=== PATIENT | female | born 1975 | race Hispanic/Latino ===

== ENCOUNTER 2023-01-17 15:01 | Inpatient (IN) | payer OTHER ==
--- OUTSIDE RECORDS SUMMARY | 2023-01-17 15:05 | XMS REPORT | Continuity of Care Document ---
:1975 Author Organization [facility] t Address [address] [place] [address] [address] [place] [address] Care Team Providers Name Role Phone GABRIELE ESCALANTE Primary Care Physician Unavailable GABRIELE ESCALANTE Attending Clinician Unavailable Gia_Boris Attending Clinician Unavailable Raghu_Dennis Attending Clinician Unavailable GABRIELE ESCALANTE Admitting Clinician Unavailable Andres Admitting Clinician Unavailable Sana Admitting Clinician Unavailable Payers Payer Name Policy Type Policy Number Effective Date Expiration Date S ource 0257 [id number] 1959 00:00:00 1014 [id number] 2023 00:00:00 [employer] (POS) [id number] 2021 00:00:00 [facility] - [id number] 2020 EV BENEFITS 00:00:00 MANAGEMENT Problems Condition Condition Condition Status Onset Resolution Last Treating Co mments Source Name Details Category Date Date Treatment Clinician Date Diabetes Diabetes Problem Active [facility]ween y mellitus Mellitus 01-15 [facility]: [facility] Vitamin D Vitamin D Problem Active Swe gladis deficiency Deficiency 01-15 Co mmuni 00:00: ty [facility] Serum iron Serum Iron Problem Active S weeny low Low 01-15 Communi 00:00: ty [facility] Abscess of Abscess of Problem Active S weeny skin of Skin of 01-15 Communi abdomen Abdomen 00:00: ty 00 [facility] Allergies, Adverse Reactions, Alerts Allergy Allergy Status Severity Reaction(s) Onset Inactive Treating Comm ents Source Name Type Date Date Clinician No Known DA Active Unknown [facility] 04-30 Medical Allergie 00:00: Center s 00 Social History Smoking Status Start Date Stop Date Source Never Smoker [facility] Medications Ordered Filled Start Stop Current Ordering Indication Dosage Frequency Signature Comments Components Source Medication Medication Date Date Medication? Clinician (SIG) Name Name mupirocin 2 mupirocin 2 No mupirocin [place] % topical % topical 2 % Commu ni ointment ointment topical ty APPLY A APPLY A ointment Hospi ta SMALL SMALL APPLY A l AMOUNT TO AMOUNT TO SMALL Clin ics THE THE AMOUNT TO AFFECTED AFFECTED THE AREA BY AREA BY AFFECTED TOPICAL TOPICAL AREA BY ROUTE 3 ROUTE 3 TOPICAL TIMES PER TIMES PER ROUTE 3 DAY DAY TIMES PER DAY Tylenol Tylenol No Tylenol [place] Arthritis Arthritis Arthritis Communi Pain Pain Pain ty Hospita l Clinics cephalexin cephalexin No 1capsul Q6H cephalexin [place] 500 mg 500 mg e(s) 500 mg Communi capsule capsule capsule ty Take 1 Take 1 Take 1 Hospita capsule capsule capsule l every 6 every 6 every 6 Clinic s hours by hours by hours by oral route oral route oral route for 7 days. for 7 days. for 7 days. cholecalcif cholecalcif No 1capsul Q1W cholecalci [place] timothy timothy e(s) ferol Communi (vitamin (vitamin (vitamin ty D3) 1,250 D3) 1,250 D3) 1,250 Hospita mcg (50,000 mcg (50,000 mcg l unit) unit) (50,000 Clinics capsule capsule unit) Take 1 Take 1 capsule capsule capsule Take 1 every week every week capsule by oral by oral every week route. route. by oral route. ferrous ferrous No 1 Q1D ferrous [place] sulfate 325 sulfate 325 sulfate Communi mg (65 mg mg (65 mg 325 mg (65 ty iron) iron) mg iron) Hospita tablet Take tablet Take tablet l 1 tablet 1 tablet Take 1 Clini cs every day every day tablet by oral by oral every day route. route. by oral route. metformin metformin No 1 Q1D metformin [place] ER 500 mg ER 500 mg ER 500 mg Communi tablet,exte tablet,exte tablet,ext ty nded nded ended Hospita release 24 release 24 release 24 l hr Take 1 hr Take 1 hr Take 1 Clinics tablet tablet tablet every day every day every day by oral by oral by oral route for route for route for 30 days. 30 days. 30 days. mupirocin 2 mupirocin 2 No mupirocin [place] % topical % topical 2 % Commu ni ointment ointment topical ty APPLY A APPLY A ointment Hospi ta SMALL SMALL APPLY A l AMOUNT TO AMOUNT TO SMALL Clin ics THE THE AMOUNT TO AFFECTED AFFECTED THE AREA BY AREA BY AFFECTED TOPICAL TOPICAL AREA BY ROUTE 3 ROUTE 3 TOPICAL TIMES PER TIMES PER ROUTE 3 DAY DAY TIMES PER DAY Tylenol Tylenol No Tylenol [place] Arthritis Arthritis Arthritis Communi Pain Pain Pain ty Hospita l Clinics Vital Signs Vital Name Observation Time Observation Value Comments Source BP Diastolic 2023-01-15 00:00:00 68 mm[Hg] [facility] Height 2023-01-15 00:00:00 59 [in_i] [facility] BMI (Body Mass 2023-01-15 00:00:00 52.4 kg/m2 [facility]) [facility] s BP Systolic 2023-01-15 00:00:00 139 mm[Hg] [facility] s Body Weight 2023-01-15 00:00:00 4150.4 [oz_av] [facility] s BP Diastolic 2023-01-09 00:00:00 85 mm[Hg] [facility] Height 2023-01-09 00:00:00 59 [in_i] [facility] s BMI (Body Mass 2023-01-09 00:00:00 52.4 kg/m2 [facility]) [facility] s BP Systolic 2023-01-09 00:00:00 151 mm[Hg] [facility] s Body Weight 2023-01-09 00:00:00 4147.2 [oz_av] [facility] s Procedures Procedure Date / Time Performed Performing Clinician Sourc e MAMMO, screening, 2023-01-09 00:00:00 [facility] digital, bilateral Hospital Clin ics US, duplex, arterial, 2023-01-09 00:00:00 [facility] lower extremity [facility] Plan of Care Planned Activity Planned Date Details Comments Source Diagnostic Test 2023-01-09 TSH + free T4, serum [facility] Pending 00:00:00 [code = TSH + free T4, [facility] serum] Diagnostic Test 2023-01-09 vitamin D, 25-hydroxy, [facility] Pending 00:00:00 total, serum [code = [facility] vitamin D, 25-hydroxy, total, serum] Diagnostic Test 2023-01-09 CBC w/ auto diff [code [facility] Pending 00:00:00 = CBC w/ auto diff] [facility] Diagnostic Test 2023-01-09 CMP, serum or plasma [facility] Pending 00:00:00 [code = CMP, serum or [facility] plasma] Diagnostic Test 2023-01-09 HbA1c (hemoglobin [facility] Pending 00:00:00 A1c), blood [code = [facility] HbA1c (hemoglobin A1c), blood] Diagnostic Test 2023-01-09 vitamin B12 + folate, [facility] Pending 00:00:00 serum or blood [code = [facility] vitamin B12 + folate, serum or blood] Diagnostic Test 2023-01-09 lipid panel, serum [facility] Pending 00:00:00 [code = lipid panel, [facility] serum] Diagnostic Test 2023-01-09 insulin, serum [code = [facility] Pending 00:00:00 insulin, serum] [facility] nic Diagnostic Test 2023-01-09 iron + TIBC + [place] [facility] unity Pending 00:00:00 ferritin, serum [code [facility] = iron + TIBC + ferritin, serum] Diagnostic Test 2023-01-09 rf (rheumatoid [place] [facility] Pending 00:00:00 factor), serum [code = [facility] rf (rheumatoid factor), serum] Diagnostic Test 2023-01-09 TERESA (antinuclear [place] [facility] Pending 00:00:00 antibodies) screen, [facility] serum [code = TERESA (antinuclear antibodies) screen, serum] Diagnostic Test 2023-01-09 ESR (erythrocyte [place] [facility] Pending 00:00:00 sedimentation rate), [facility] blood [code = ESR (erythrocyte sedimentation rate), blood] Diagnostic Test 2023-01-09 C-reactive protein, [facility] Pending 00:00:00 quantitative [code = [facility] C-reactive protein, quantitative] Future Appointment 2023-04-17 Gabriele Escalante, [address] [place] [address] 00:00:00 [facility] [address]; , [place] [address] Future Appointment 2023-01-29 Gabriele Escalante [address] [place] [address] 00:00:00 [facility] [address]; , [place] [address] Instructions [facility] s Encounters Start End Encounter Admission Attending Care Care Encounter Source Date/Time Date/Time Type Type Clinicians Facility Department ID 2023-01-16 2023-01-16 Outpatient Meg AHUJAAlyssa [facility] RAD [id number] [place] 13:29:00 23:59:00 [facility] 2023-01-15 [facility] [place] [facility] [place] 00:[facility]:00 00:00:00 [facility] komal CAMPOS, MSN, [facility] - ty [facility]: [address], [address], [place] [address] , Ph. 2023-01-09 2023-01-09 Outpatient L_Pena [facility] [id number] [place] 00:00:00 00:00:00 0502 Commun i ty Hospita l [facility] 2023-01-09 2023-01-09 Outpatient L_Pena [facility] [id number] [place] 00:00:00 00:00:00 0508 Commun i ty Hospita l Clinics 2023-01-09 2023-01-09 Outpatient L_Pena [facility] [id number] [place] 00:00:00 00:00:00 0509 Commun i ty Hospita l Clinics 2023-01-09 2023-01-09 [facility] [place] 00:00:00 00:00:00 [facility] CAMPOS, MSN, Hospital - ty [facility]: [facility] [address] [place] [address], CLINIC [address], [place] [address] , Ph. 2023-01-08 2023-01-08 Outpatient PRIV PRIV [id number] [facility] 00:00:00 00:00:00 [id number] Medica l 2023-01-08 2023-01-08 Outpatient L_Pena [facility] [id number] [place] 00:00:00 00:00:00 0501 Commun i ty Hospita l Clinics 2022-12-08 2022-12-08 Outpatient [place]_P VFP VFP [id number] [place] 00:00:00 00:00:00 [id number] Family Practic e Results Test Description Test Time Test Comments Results Result Sour e Comments U/S [facility] 2023-01-16 DOPPLER CHARLIE LOW 16:03:07 [facility] 1975 Sex: F EXAMINATION :U/S [facility] DOPPLER CHARLIE LOW EXTCLINICAL INDICATION:Female, 47 years old with Skin findingTECHNIQUE: Grayscale, color Doppler, and spectral waveform analysis of the bilateral lower extremity is performed.COMPARISON: NoneFINDINGS:Grayscale: No significant atherosclerotic change. Doppler: Right: Biphasic and triphasic waveforms and normal velocities are documented in the common femoral, superficial femoral, popliteal, anterior tibial, posterior tibial, and peroneal arteries. There is no focal, high velocity stenosis or abrupt occlusion.Left: Biphasic and triphasic waveforms and normal velocities are documented in the common femoral, superficial femoral, popliteal, anterior tibial, posterior tibial, and peroneal arteries. The distal aspect of the superficial femoral artery is not visualized. There is no focal, high velocity stenosis or abrupt occlusion.Additional findings: No additional sonographic abnormality.IMPRESSION:N o acute sonographic abnormality, no evidence of hemodynamically significant stenosis.Electronically signed by: Saul Pagan MD 01/16/2023 4:03 PM CDT MAMMO SCREENING 2023-01-16 W/ JI 14:34:28 [facility] 1975 Sex: F Exam: Bilateral digital mammogram with 3-D TomosynthesisLocation: [id number]: Routine screening.Comparison: None, baselineFINDINGS:No dominant masses or clustered microcalcifications are identified. The breast parenchyma demonstrates scattered fibroglandular elements with some benign secretory calcifications without worrisome pleomorphic microcalcifications.R2 computer aided detection was utilized as an aid for interpreting these images.IMPRESSION:1. ACR BI-RADS 2. Benign findings. Recommendation: Routine yearly mammographic follow-up recommended.Electronical ly signed by: Manolo Ivy MD 01/16/2023 2:34 PM CDT
--- NOTE | 2023-01-17 15:26 | EDPHYS ---
Physician Documentation [facility] Name: Rissa Donovan Age: 47 yrs Sex: Female : 1975 Arrival Date: 01/17/2023 Time: 15:01 Bed 18 Private MD: ED Physician Weston Aguilar HPI: 01/17 15:21 This 47 yrs old Female presents to ER via Ambulatory with complaints of ms3 Abscess. 15:21 47-year-old female with past medical history of diabetes presents from Dr. Blanca's ms3 office for panniculitis and abscess. Patient denies pain at this time. Patient denies fevers, chills, nausea, vomiting. 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 - Social history:: Smoking status: Patient denies any tobacco usage or history of. ROS: 15:21 Constitutional: Negative for fever, and chills. Neck: Negative for injury, pain, and ms3 swelling, Cardiovascular: Negative for chest pain, and palpitations. Respiratory: Negative for shortness of breath, cough, wheezing, and pleuritic chest pain, Abdomen/GI: Negative for abdominal pain, nausea, vomiting, diarrhea, and constipation, MS/Extremity: Negative for injury and deformity. 15:21 Skin: Positive for abscess, cellulitis. 15:21 All other systems are negative. Exam: 15:21 Constitutional: This is a well developed, well nourished patient who is awake, alert, ms3 and in no acute distress. Head/Face: Normocephalic, atraumatic. Neck: Trachea midline, no cervical lymphadenopathy. Supple, full range of motion without nuchal rigidity, or vertebral point tenderness. No Meningismus. Chest/axilla: Normal chest wall appearance and motion. Nontender with no deformity. Cardiovascular: Regular rate and rhythm with a normal S1 and S2. No gallops, murmurs, or rubs. Normal PMI, no JVD. No pulse deficits. Respiratory: Lungs have equal breath sounds bilaterally, clear to auscultation and percussion. No rales, rhonchi or wheezes noted. No increased work of breathing, no retractions or nasal flaring. Abdomen/GI: Soft, non-tender, with normal bowel sounds. No distension or tympany. No guarding or rebound. No evidence of tenderness throughout. 15:21 Skin: cellulitis, that is severe, well demarcated, on the abdomen, induration, that is moderate is noted, located on the abdomen. Vital Signs: 15:18 BP 142 / 68; Pulse 85; Resp 17; Temp 98.4(O); Pulse Ox 98% on R/A; Weight 117.03 kg; ss Height 4 ft. 9 in. ; Pain 4/10; 16:30 BP 112 / 58; Pulse 72; Resp 16; Pulse Ox 100% on R/A; eh3 19:08 BP 117 / 61; Pulse 86; Resp 16; Pulse Ox 97% on R/A; jb4 15:18 Body Mass Index 55.83 (117.03 kg, 144.78 cm) ss 15:18 Pain Scale: Adult ss MDM: 15:10 Patient medically screened. rt 15:21 Differential diagnosis: abscess, cellulitis, hyperglycemia. Management of patient was ms3 discussed with the following: Pharmacist Technician: Dr Morrison- will take to OR tomorrow, admit to Hospitalist secondary to history of DM. 17:29 Data reviewed: vital signs, nurses notes, lab test result(s), and as a result, I will ms3 admit patient. Consideration of Admission/Observation Patient was admitted/placed on observation. I considered the following discharge prescriptions or medication management in the emergency department Medications were administered in the Emergency Department. See MAR. Care significantly affected by the following chronic conditions: Diabetes. Counseling: I had a detailed discussion with the patient and/or guardian regarding: the historical points, exam findings, and any diagnostic results supporting the discharge/admit diagnosis, lab results, the need for further work-up and treatment in the hospital. Response to treatment: There is no appreciated change of the patient's symptoms at this time, and as a result, I will admit patient. 01/17 15:20 Order name: CBC with Diff; Complete Time: 16:24 ms3 01/17 15:20 Order name: BMP; Complete Time: 16:24 ms3 01/17 15:20 Order name: Blood Culture Adult (2) ms3 01/17 15:20 Order name: Wound Culture ms3 01/17 17:19 Order name: Phosphorus; Complete Time: 17:28 EDMS 01/17 17:19 Order name: Magnesium; Complete Time: 17:28 EDMS 01/17 16:49 Order name: Diet Heart Healthy; Complete Time: 16:49 eh3 Administered Medications: 16:20 Drug: Piperacillin-Tazobactam IVPB 3.375 grams Route: IVPB; Infused Over: 60 mins; eh3 Site: left antecubital; 17:20 Follow up: Response: No adverse reaction; IV Status: Completed infusion; IV Intake: eh3 100ml 17:00 Drug: vancoMYCIN IVPB 1 grams Route: IVPB; Infused Over: 2 hrs; Site: left antecubital; eh3 19:00 Follow up: Response: No adverse reaction; IV Status: Completed infusion; IV Intake: eh3 250ml Disposition Summary: 01/17/23 15:25 Hospitalization Ordered Hospitalization Status: Inpatient Admission ms3 Provider: Randal Gonzalez ms3 [facility] Condition: Stable ms3 Problem: new ms3 Symptoms: are unchanged ms3 Bed/Room Type: Standard ms3 Room Assignment: 215(01/17/23 18:26) ss Diagnosis - Panniculitis, unspecified ms3 - Cutaneous abscess of abdominal wall ms3 - Elevated blood-pressure reading, without diagnosis of hypertension ms3 - Diabetes Mellitus ms3 Forms: - Medication Reconciliation Form ms3 - SBAR form ms3 Signatures: Dispatcher [employer] EDWV Ebonie Victoria RN RN ss Weston Aguilar DO DO ms3 Carlene Palacios RN RN [facility] Saul Foss MD MD rt Corrections: (The following items were deleted from the chart) 18:26 15:25 ms3 ss
--- NOTE | 2023-01-17 15:26 | ER ---
Nurse's Notes [facility] Name: Rissa Donovan Age: 47 yrs Sex: Female : 1975 Arrival Date: 01/17/2023 Time: 15:01 Bed 18 Private MD: Diagnosis: Panniculitis, unspecified;Cutaneous abscess of abdominal wall;Elevated blood-pressure reading, without diagnosis of hypertension;Diabetes Mellitus Presentation: 01/17 15:18 Chief complaint: Patient states: Sent from Dr. Morrison's office for abd wall ss cellulitis/ abscess. PT reports that she noticed the start of an abscess months ago. Denies fever. Drainage started yesterday. Coronavirus screen: Client denies travel out of the [place] in the last 14 days. Ebola Screen: Patient denies exposure to infectious person. Patient denies travel to an Ebola-affected area in the 21 days before illness onset. Initial Sepsis Screen: Does the patient meet any 2 criteria? No. Patient's initial sepsis screen is negative. Does the patient have a suspected source of infection? No. Patient's initial sepsis screen is negative. Risk Assessment: Do you want to hurt yourself or someone else? Patient reports no desire to harm self or others. Onset of symptoms is unknown. 15:18 Method Of Arrival: Ambulatory ss 15:18 Acuity: CRIS 3 ss Triage Assessment: 15:15 General: Appears in no apparent distress. uncomfortable, Behavior is calm, cooperative, eh3 appropriate for age. 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 - Social history:: Smoking status: Patient denies any tobacco usage or history of. Screenin:15 [facility] ED Fall Risk Assessment (Adult) Score/Fall Risk Level 0 - 2 = Low Risk. Abuse eh3 screen: Denies threats or abuse. Denies injuries from another. Nutritional screening: No deficits noted. Tuberculosis screening: No symptoms or risk factors identified. Assessment: 15:15 General: Appears in no apparent distress. uncomfortable, Behavior is calm, cooperative, eh3 appropriate for age. Pain: Complains of pain in suprapubic area. Neuro: Level of Consciousness is awake, alert, obeys commands, Oriented to person, place, time, situation. Cardiovascular: Capillary refill < 3 seconds Patient's skin is warm and dry. Respiratory: Airway is patent Respiratory effort is even, unlabored, Respiratory pattern is regular, symmetrical. GI: Abdomen is round non-distended. : No signs and/or symptoms were reported regarding the genitourinary system. EENT: No signs and/or symptoms were reported regarding the EENT system. Derm: Skin is pink, warm \\T\\ dry. Abscess located on suprapubic area is dime sized, has purulent drainage, is red. Musculoskeletal: Circulation, motion, and sensation intact. 16:30 Reassessment: Patient appears in no apparent distress at this time. Patient and/or eh3 family updated on plan of care and expected duration. Pain level reassessed. Patient is alert, oriented x 3, equal unlabored respirations, skin warm/dry/pink. 18:27 Reassessment: Unsuccessful attempt to call report to 2nd floor, charge nurse stated, eh3 "Those rooms are for after shift change". Vital Signs: 15:18 BP 142 / 68; Pulse 85; Resp 17; Temp 98.4(O); Pulse Ox 98% on R/A; Weight 117.03 kg; ss Height 4 ft. 9 in. ; Pain 4/10; 16:30 BP 112 / 58; Pulse 72; Resp 16; Pulse Ox 100% on R/A; eh3 19:08 BP 117 / 61; Pulse 86; Resp 16; Pulse Ox 97% on R/A; jb4 15:18 Body Mass Index 55.83 (117.03 kg, 144.78 cm) ss 15:18 Pain Scale: Adult ss ED Course: 15:04 Patient arrived in ED. rg4 15:05 Weston Aguilar DO is Attending Physician. ms3 15:13 Carlene Palacios, RN is Primary Nurse. eh3 15:15 Patient has correct armband on for positive identification. Bed in low position. Call 3 light in reach. Side rails up X2. Adult w/ patient. Pulse ox on. NIBP on. Door closed. Noise minimized. Lights dimmed. Warm blanket given. 15:20 Triage completed. ss 15:20 Arm band placed on right wrist. ss 15:23 Randal Gonzalez MD is Hospitalizing Provider. ms3 15:35 Inserted saline lock: 20 gauge in left antecubital area, using aseptic technique. Blood 3 collected. 15:35 First set of blood cultures drawn by me. eh3 16:15 Second set of blood cultures drawn by me. eh3 16:30 No provider procedures requiring assistance completed. Patient admitted, IV remains in [address]. 16:38 Wound Culture Sent. eh3 16:38 Blood Culture Adult (2) Sent. 3 19:00 Report given to Reid Prado RN. 3 Administered Medications: 16:20 Drug: Piperacillin-Tazobactam IVPB 3.375 grams Route: IVPB; Infused Over: 60 mins; 3 Site: left antecubital; 17:20 Follow up: Response: No adverse reaction; IV Status: Completed infusion; IV Intake: eh3 100ml 17:00 Drug: vancoMYCIN IVPB 1 grams Route: IVPB; Infused Over: 2 hrs; Site: left antecubital; 3 19:00 Follow up: Response: No adverse reaction; IV Status: Completed infusion; IV Intake: eh3 250ml Medication: 16:30 VIS not applicable for this client. 3 Intake: 17:20 IV: 100ml; Total: 100ml. eh3 19:00 IV: 250ml; Total: 350ml. 3 Outcome: 15:25 Decision to Hospitalize by Provider. ms3 16:30 Admitted to ER Hold. Please see [facility] for further documentation. 3 16:30 Condition: stable 16:30 Instructed on the need for admit. 19:50 Patient left the ED. mb9 Signatures: Ebonie Victoria, Beatrice Carrera RN4 Reid Prado, MAX SANTANA jb4 Weston Aguilar DO DO ms3 Carlene Palacios RN RN 3 Gaby Pacheco RN RN mb9
[2023-01-17 15:53] LABS: Absolute Lymphocytes (CBC) 2.2 K/uL (0.7-4.9); Hematocrit 36.1 % (36.0-45.0); Lymphocytes % 23.5 % (15.3-44.8); MCV 74.1 fL (80-100); MPV 7.6 fL (7.6-11.3); RBC Red Blood Cell Count 4.87 M/uL (3.86-4.86)
[2023-01-17] MEDS ORDERED: NA CHLORIDE 0.9% 100 ML ONE (15:56)
[2023-01-17] MEDS ORDERED: PIPERACIL/TAZO 3.375 GM VIAL IV ONE (15:56)
[2023-01-17] MEDS ORDERED: NA CHLORIDE 0.9% 250 ML ONE (15:56)
[2023-01-17] MEDS ORDERED: VANCOMYCIN 1 GM/VIAL ONE (15:56)
[2023-01-17 16:16] LABS: Potassium 3.7 mEq/L (3.5-5.1)
[2023-01-17] MEDS ORDERED: MORPHINE 4 MG/ML SYR IV PRN (16:40)
[2023-01-17] MEDS ORDERED: ONDANSETRON 4 MG/2 ML VIAL IV PRN (16:43)
--- NOTE | 2023-01-17 16:55 | P.HP ---
Certification for Inpatient Patient admitted to: Observation With expected LOS: <2 Midnights Patient will require the following post-hospital care: None Practitioner: I am a practitioner with admitting privileges, knowledge of patient current condition, hospital course, and medical plan of care. Services: Services provided to patient in accordance with Admission requirements found in Title 42 Section 412.3 of the Code of Federal Regulations Patient History Date of Service: 01/17/23 Reason for admission: Abdominal wall abscess\cellulitis History of Present Illness: Patient is a 47-year-old female with a past medical history significant for morbid obesity and DM2 who presents with complaint of abscess in the left lower quadrant\suprapubic area. Patient reported that she noticed an induration 1 and half months ago and 3 days ago patient started having pain in her left lower quadrant. Patient started noticing increased swelling\pain\redness subsequently. Patient reported that yesterday as she was trying to sit, the abscess ruptured and has been having drainage since then. Patient reported that she was placed on antibiotics by her PCP but has not noticed any improvement. Patient reported that she has been experiencing episodes of shortness of breath with exertion, fatigue and weakness for the past couple of months. Patient in dicated that she has an upcoming appointment with a silk presser for further work-up of symptoms. She reported that she was told that she was anemic and was placed on iron tablets. Patient was recently diagnosed with type II DM 2 days ago. Patient reported associated signs and symptoms of polyuria and polydipsia. Patient denies any other signs and symptoms. Symptoms are aggravated or relieved by nothing. Patient was referred by her PCP to a surgeon who instructed her to come to the ER for possible incision and debridement in a.m. Allergies No Known Allergies Allergy (Unverified 01/17/23 18:08) - Past Medical/Surgical History -: DM 2 -: MIKE -: Morbid obesity Past Surgical History: Reviewed- Non-Contributory - Family History Father -: Hypertension, Diabetes Mother -: Diabetes - Social History Smoking Status: Never smoker Alcohol use: No CD- Drugs: No Caffeine use: Yes Place of Residence: Home Review of Systems General: Weakness, Other (Fatigue) Eyes: Unremarkable ENT: Unremarkable Respiratory: SOB with Excertion Cardiovascular: Unremarkable Gastrointestinal: Abdominal Pain, Other (Polydipsia) Genitourinary: Other (Polyuria) Musculoskeletal: Unremarkable Integumentary: Other (Abdominal wall redness\swelling\pain) Neurological: Weakness Lymphatics: Unremarkable Physical Examination - Physical Exam General: Alert, In no apparent distress, Oriented x3 HEENT: Atraumatic, PERRLA, Mucous membr. moist/pink, EOMI, Sclerae nonicteric Neck: Supple, 2+ carotid pulse no bruit, No LAD, Without JVD or thyroid abnormality Respiratory: Clear to auscultation bilaterally, Normal air movement Cardiovascular: No edema, Regular rate/rhythm, Normal S1 S2 Capillary refill: <2 Seconds Gastrointestinal: Normal bowel sounds, No ascites, Tenderness Musculoskeletal: No clubbing, No swelling, No contractures, No tenderness Integumentary: No rashes, Skin breakdown, Tenderness/swelling, Erythema Neurological: Normal speech, Normal tone, Normal affect Lymphatics: No axilla or inguinal lymphadenopathy - Studies Laboratory Data (last 24 hrs) 01/17/23 15:38: Sodium 134 L, Potassium 3.7, BUN 13, Creatinine 0.63, Glucose 92 01/17/23 15:38: WBC 9.40, Hgb 11.5 L, Hct 36.1, Plt Count 354 Assessment and Plan - Plan --Abdominal wall cellulitis\abscess. Wound and blood cultures pending. Surgeon consulted. Plans an incision and debridement in a.m. Patient placed on antibiotics. We will keep patient n.p.o. after midnight. Will await further recommendation from surgeon. --DM2. BS monitoring with sliding scale insulin. --Class III obesity. Likely secondary to excess calories intake and sedentary lifestyle. Patient counseled on weight reduction, diet and excise therapy. --Acute pain. We will manage pain with current pain medication regimen. --MIKE. Patient on iron tablets at home. Continue ferrous sulfate. --DVT prophylaxis with SCDs. Discharge Plan: Home Plan to discharge in: 48 Hours - Advance Directives Does patient have a Living Will: No Does patient have a Durable POA for Healthcare: No - Code Status/Comfort Care Code Status Assessed: Yes Physician Review: Patient Assessed, Agree with Above Assessment and Plan
[2023-01-17 17:19] LABS: Magnesium 2.1 mg/dL (1.6-2.4); Phosphorus 3.7 mg/dL (2.5-4.9)
[2023-01-17 18:11] VITALS: BMI 55.8
[2023-01-17] MEDS: CLINDAMYCIN 900MG/D5W 900 MG/50 ML IVPB IV SCH (19:33)
[2023-01-17] MEDS: INSULIN -REGULAR HUMAN 50 UNIT/0.5 ML ML SQ SCH (21:00)
[2023-01-17] MEDS: FERROUS SULFATE 325 MG TAB PO SCH (21:12)
[2023-01-17] MEDS: ACETAMINOPHEN 325 MG TABLET PO PRN (23:05)
[2023-01-18] MEDS ORDERED: CLINDAMYCIN 900MG/D5W 900 MG/50 ML IVPB IV ONE (01:34)
[2023-01-18] MEDS: CLINDAMYCIN 900MG/D5W 900 MG/50 ML IVPB IV SCH ×3 (01:49→16:38)
[2023-01-18 03:59] LABS: Absolute Lymphocytes (CBC) 2.7 K/uL (0.7-4.9); Hematocrit 34.1 % (36.0-45.0); Lymphocytes % 26.6 % (15.3-44.8); MCV 75.2 fL (80-100); RBC Red Blood Cell Count 4.54 M/uL (3.86-4.86)
[2023-01-18 04:05] LABS: Potassium 3.9 mEq/L (3.5-5.1)
[2023-01-18] MEDS ORDERED: KCL 20 MEQ/100 mL IVPB 20 MEQ/100 ML BAG IV SCH (05:00)
[2023-01-18 05:02] LABS: Specific Gravity > 1.030 (1.005-1.030); Urine Bacteria None Seen /HPF (<20); Urine Bilirubin NEGATIVE (Negative); Urine Blood Negative (Negative); Urine Clarity Clear (Clear); Urine Color Yellow (Yellow); Urine Glucose NEGATIVE (Negative); Urine Mucus 1+ /HPF (None Seen); Urine Protein TRACE (Negative); Urine RBC <5 /HPF (None Seen); Urine Urobilinogen 2+ (Normal)
[2023-01-18] MEDS ORDERED: NA CHLORIDE 0.9% 100 ML ONE (05:23)
--- NOTE | 2023-01-18 06:55 | P.PN ---
Date of Service: 01/18/23 Subjective: Feeling pretty good this morning burning sensation on arm likely from potassium no new / worsening symptoms ROS: 10 point ROS as noted above, otherwise negative Physical Exam: GEN: Alert, oriented, NAD HEENT: Normal conjunctiva, sclera anicteric CV: Regular rate and rhythm, no edema Pulm: Nonlabored respirations on room air ABD: Soft, nontender, nondistended, dressing in place Integumentary: Skin breakdown, Tenderness/swelling, Erythema Neuro: Normal speech, normal affect vitals reviewed Problem List: Abdominal wall cellulitis\abscess DM2 Class III obesity MIKE Abdominal wall cellulitis\abscess Wound culture pending blood cultures pending Surgeon consulted s/p incision and debridement abscess with necrotic tissue 01/18 f/u wound culture pending Continue antibiotics empirically Pain medication as needed incentive spirometry DM2 continue sliding scale insulin Class III obesity Likely secondary to excess calories intake and sedentary lifestyle. Patient counseled on weight reduction, diet and excise therapy. MIKE. Patient on iron tablets at home Continue ferrous sulfate VTE: SCD Code: Full Dispo: Home 1-2 days
[2023-01-18] MEDS: INSULIN -REGULAR HUMAN 50 UNIT/0.5 ML ML SQ SCH ×4 (07:30→21:00)
[2023-01-18] MEDS ORDERED: NA CHLORIDE 0.9% 250 ML ONE (07:38)
[2023-01-18] MEDS: NA CHLORIDE 0.9% 1,000 ML IV SCH ×3 (07:57→21:18)
[2023-01-18] MEDS ORDERED: PNEUMOCOCCAL VACCINE 0.5 ML IMVAC ONE (08:00)
[2023-01-18] MEDS ORDERED: NA CHLORIDE 0.9% 1,000 ML ONE (08:05)
[2023-01-18] MEDS ORDERED: FENTANYL CITR 100 MCG/2 ML ONE (08:14)
[2023-01-18] MEDS ORDERED: LIDOCAINE 2% MPF 5 ML VIAL ONE (08:14)
[2023-01-18] MEDS ORDERED: propofoL 200 MG/20 ML VIAL IV ONE (08:14)
[2023-01-18] MEDS ORDERED: ONDANSETRON 4 MG/2 ML VIAL ONE (08:14)
[2023-01-18] MEDS ORDERED: ROCURONIUM 50 MG/5 ML VIAL IV ONE (08:14)
[2023-01-18] MEDS ORDERED: MIDAZOLAM HCL 2 MG/2 ML INJ ONE (08:14)
[2023-01-18] MEDS ORDERED: dexAMETHasone 4 MG/ML VIAL ONE (08:14)
[2023-01-18] MEDS ORDERED: KETOROLAC 30 MG/ML INJ ONE (08:15)
[2023-01-18] MEDS ORDERED: SUCCINYLCHOLINE 20 MG/ML (10 ML) IV ONE (08:24)
--- NOTE | 2023-01-18 08:44 | P.BOP ---
Preoperative diagnosis: PAniculititis, Abdominal wall cellulitis, abscess Postoperative diagnosis: same Primary procedure: I&D , excisional subQ debridement of Abdominal wall abscess 6x6cm Estimated blood loss: <20cc Specimen: culture Findings: abscess with necrotic subQ tissue Anesthesia: General Complications: None Drain(s): Other (wet to dry NS) Transferred to: Recovery Room Condition: Good
[2023-01-18] MEDS ORDERED: HYDROCODONE/APAP 5/325 MG TAB PO PRN (09:06)
[2023-01-18] MEDS ORDERED: SUGAMMADEX SODIUM 200 MG/2 ML VIAL IV ONE (09:09)
--- NOTE | 2023-01-18 09:12 | CON ---
Date of Consultation: 01/18/2023 Reason For Service: Abdominal wall cellulitis, pancolitis, and abscess. History Of Present Illness: This is the case of a 47-year-old patient, admitted to the hospital with cellulitis of the abdominal wall. The patient is morbidly obese, history of diabetes. She has been on 2 antibiotics by mouth, but has been unsuccessful. She comes with extension and exacerbation of her cellulitis, area fluctuance with purulent discharge. She was admitted to the hospital and a surg ical consult was obtained for incision and drainage. The patient denies any trauma, dysuria, hematur ia, hematochezia, melena. Denies any recent traveling out of the country. Denies any family member sick at home. The patient recently diagnosed with diabetes. Allergies: NONE. Past Medical History: Diabetes type 2 and morbid obesity. Family History: Diabetes. Social History: She does not smoke. She does not drink alcohol. Medications: Reviewed. Review of Systems: See HPI. Ten points otherwise unremarkable. Physical Examination: General: The patient is awake, alert. HEENT: Pupils are equal and reactive. Anicteric. Neck: Supple. Chest: Clear. Heart: S1, S2. Abdomen: Half of the abdomen into the left side, the patient has pancolitis with cellulitis present, increased hyperemia, increased temperature. There is a center of that with an open ulcer draining p us. This is consistent with an abscess with some necrotic tissue present. Genitalia: Deferred. Breasts: Deferred. Extremities: Good capillary refill. Rectal: Deferred. Laboratory Data: Blood work shows WBC count of 10.2 with hemoglobin of 10.9, platelets of 332, gluco se is 115. Assessment: A 47-year-old patient with pancolitis, diabetes, morbid obesity, and abscess on the left lower quadrant, getting worse despite being on 2 p.o. antibiotics by the primary doctors. Due to al l those conditions and the chance of this spreading even worse, we offered her incision and drainage and excision and debridement of the abscess with benefits, alternatives, and risks including, but not limited to infection, bleeding, damage to adjacent structures, anesthesia complication, nonhealing w ound, CT, and even . She also understands this may not relieve any symptoms. She might need mo re than one surgical intervention. She understood and signed a consent. She was advised the importa nce of weight loss, the importance of diabetes control. BERTA/MARTHA Voice ID: [id number] Report ID: [id number]
[2023-01-18] MEDS ORDERED: ALBUTEROL INHALER 60 PUFF/8 GM IH ONE (09:26)
[2023-01-18] MEDS: FERROUS SULFATE 325 MG TAB PO SCH ×2 (11:27→21:14)
[2023-01-18] MEDS: ACETAMINOPHEN 325 MG TABLET PO PRN (16:38)
[2023-01-19] MEDS: CLINDAMYCIN 900MG/D5W 900 MG/50 ML IVPB IV SCH ×2 (01:25→08:55)
[2023-01-19 03:33] LABS: Absolute Lymphocytes (CBC) 1.6 K/uL (0.7-4.9); Hematocrit 35.2 % (36.0-45.0); Lymphocytes % 15.6 % (15.3-44.8); MCV 74.4 fL (80-100); MPV 7.8 fL (7.6-11.3); RBC Red Blood Cell Count 4.73 M/uL (3.86-4.86)
[2023-01-19 03:50] LABS: Potassium 4.1 mEq/L (3.5-5.1)
[2023-01-19] MEDS: NA CHLORIDE 0.9% 1,000 ML IV SCH (05:01)
[2023-01-19] MEDS: ACETAMINOPHEN 325 MG TABLET PO PRN (05:01)
--- NOTE | 2023-01-19 07:07 | P.PN ---
Date of Service: 01/19/23 Subjective: ROS: 10 point ROS as noted above, otherwise negative Physical Exam: GEN: Alert, oriented, NAD HEENT: Normal conjunctiva, sclera anicteric CV: Regular rate and rhythm, no edema Pulm: Nonlabored respirations on room air ABD: Soft, nontender, nondistended, dressing in place Integumentary: Skin breakdown, Tenderness/swelling, Erythema Neuro: Normal speech, normal affect vitals reviewed Problem List: Abdominal wall cellulitis\abscess DM2 Class III obesity MIKE Abdominal wall cellulitis\abscess Wound culture pending blood cultures pending Surgeon consulted s/p incision and debridement abscess with necrotic tissue 01/18 f/u wound culture pending Continue antibiotics empirically Pain medication as needed incentive spirometry DM2 continue sliding scale insulin Class III obesity Likely secondary to excess calories intake and sedentary lifestyle. Patient counseled on weight reduction, diet and excise therapy. MIKE. Patient on iron tablets at home Continue ferrous sulfate VTE: SCD Code: Full Dispo: Home 1-2 days
[2023-01-19] MEDS: INSULIN -REGULAR HUMAN 50 UNIT/0.5 ML ML SQ SCH ×2 (07:30→11:30)
[2023-01-19 08:31] VITALS: BP 123/67; TEMP 97.1
--- NOTE | 2023-01-19 08:47 | P.DS ---
Admission Date: 01/18/23 Discharge Date: 01/19/23 Disposition: ROUTINE DISCHARGE Discharge Condition: GOOD Reason for Admission: Abdominal wall abscess\cellulitis Consultations: General Surgery - Dr. Morrison Brief History of Present Illness: 47yo F, PMH: morbid obesity and DM2 Patient presents with complaint of abscess in the left lower quadrant\suprapubic area. Patient reported that she noticed an induration 1 and half months ago and 3 days ago patient started having pain in her left lower quadrant. Patient started noticing increased swelling\pain\redness subsequently. Patient reported that yesterday as she was trying to sit, the abscess ruptured and has been having drainage since then. Patient reported that she was placed on antibiotics by her PCP but has not noticed any improvement. Patient reported that she has been experiencing episodes of shortness of breath with exertion, fatigue and weakness for the past couple of months. Patient indicated that she has an upcoming appointment with a enterprise application administrator for further work-up of symptoms. She reported that she was told that she was anemic and was placed on iron tablets. Patient was recently diagnosed with type II DM 2 days ago. Patient reported associated signs and symptoms of polyuria and polydipsia. Patient denies any other signs and symptoms. Symptoms are aggravated or relieved by nothing. Patient was referred by her PCP to a surgeon who instructed her to come to the ER for possible incision and debridement in a.m. Hospital Course: Problem List: Abdominal wall cellulitis\abscess DM2 Class III obesity MIKE Patient presented with complaint of abscess in the left lower quadrant\suprapubic area. General Surgery was consulted. Dr. Morrison performed excisional subQ debridement of abdominal wall abscess. Patient was treated with clindamycin. Initial gram stain negative. Cultures pending. Patient was doing well post-operatively and deemed stable for discharge home. continue daily wound care - wet-to-dry dressing, once a day New prescriptions: Clindamycin and Doxycycline for 10 days Continue other home medications as previously prescribed. Stop prior antibiotics. Follow up: PCP within 1 week General Surgery - Dr. Morrison next /sunday (01/25-01/26) Dr. Morrison recommended not returning to work until follow up in his office. Physical Exam: GEN: Alert, oriented, NAD HEENT: Normal conjunctiva, sclera anicteric CV: Regular rate and rhythm, no edema Pulm: Nonlabored respirations on room air ABD: Soft, nontender, nondistended, dressing in place Integumentary: abscess s/p I&D, superficial lesion, ~6x3cm, no purulent drainage, wet-to-dry dressing Vital Signs/Physical Exam: Temp Pulse Resp BP Pulse Ox 97.1 F 68 14 123/67 97 01/19/23 08:00 01/19/23 08:00 01/19/23 08:00 01/19/23 08:00 01/19/23 08:00 Laboratory Data at Discharge: WBC 10.40 thou/uL (4.3-10.9) 01/19/23 02:59 Hgb 11.2 g/dL (12.0-15.0) L 01/19/23 02:59 Hct 35.2 % (36.0-45.0) L 01/19/23 02:59 Plt Count 343 thou/uL (152-406) 01/19/23 02:59 Sodium 134 mEq/L (136-145) L 01/19/23 02:59 Potassium 4.1 mEq/L (3.5-5.1) 01/19/23 02:59 BUN 13 mg/dL (7-18) 01/19/23 02:59 Creatinine 0.56 mg/dL (0.55-1.02) 01/19/23 02:59 Glucose 139 mg/dL (74-106) H 01/19/23 02:59 Phosphorus 3.7 mg/dL (2.5-4.9) 01/17/23 15:38 Magnesium 2.1 mg/dL (1.6-2.4) 01/17/23 15:38 Home Medications: Metformin ER [Glucophage ER*] 500 mg PO DAILY 01/17/23 Vitmin D 50,000 units PO EVERY 7TH DAY 01/17/23 Doxycycline Hyclate 100 mg PO BID 10 Days #20 tab 01/19/23 clindamycin HCL [Clindamycin HCl] 300 mg PO Q6H 10 Days #40 cap 01/19/23 New Medications: clindamycin HCL [Clindamycin HCl] 300 mg PO Q6H 10 Days #40 cap Doxycycline Hyclate 100 mg PO BID 10 Days #20 tab Physician Discharge Instructions: Patient presented with complaint of abscess in the left lower quadrant\suprapubi c area. General Surgery was consulted. Dr. Morrison performed excisional subQ debridement of abdominal wall abscess. Patient was treated with clindamycin. Initial gram stain negative. Cultures pending. Patient was doing well post-operatively and deemed stable for discharge home. continue daily wound care - wet-to-dry dressing, once a day New prescriptions: Clindamycin and Doxycycline for 10 days Continue other home medications as previously prescribed. Stop prior antibiotics. Follow up: PCP within 1 week General Surgery - Dr. Morrison next /sunday (01/25-01/26) Dr. Morrison recommended not returning to work until follow up in his office. Followup: NONE,NONE [Primary Care Provider] - Time spent managing pt's care (in minutes): 45
[2023-01-19] MEDS: FERROUS SULFATE 325 MG TAB PO SCH (08:55)
[2023-01-19 08:56] VITALS: O2SAT 97
[2023-01-19] MEDS ORDERED: NS IV SCH (17:00)
[2023-01-19] MEDS ORDERED: CLINDAMYCIN IV SCH (17:00)
== END 2023-01-19 12:27 | disposition home or self-care (01) | DRG 571 ==
LOC: ER 15:01 → ERHOLD 16:34 → 2ND 19:25 → OBSVTOIN 01-18 15:11
PROVIDERS: ADMIT Hospitalist; ATTEND Hospitalist
PROC: 0JB80ZZ Excision of Abdomen Subcutaneous Tissue and Fascia, Open Approach (ICD-10-PCS; principal; 2023-01-18 07:30)
DX: L02.211 Cutaneous abscess of abdominal wall (principal); Z68.43 Body mass index [BMI] 50.0-59.9, adult; L03.311 Cellulitis of abdominal wall; M79.3 Panniculitis, unspecified; E11.9 Type 2 diabetes mellitus without complications; D50.9 Iron deficiency anemia, unspecified; R03.0 Elevated blood-pressure reading, without diagnosis of hypertension; E66.01 Morbid (severe) obesity due to excess calories; Z71.3 Dietary counseling and surveillance; Z28.310 Unvaccinated for COVID-19; Z83.3 Family history of diabetes mellitus; Z82.49 Family history of ischemic heart disease and other diseases of the circulatory system
CPT/HCPCS: 36415; 80048; 81001; 82947; 83036; 83735; 84100; 85025; 87040; 87070; 87075; 87205; 88304; 93005; 94010; 96365; 96366; 99285; G0378; J1100; J2001; J2250; J2405; J2543; J2704; J3010; J3480; J3490; J7030; J7050